=== PATIENT | female | born 1965 | race Caucasian/White ===

== ENCOUNTER 2017-10-19 10:21 | Observation (INO) | payer OTHER ==
[~2017-10-19 10:21] MED LIST: LIDOCAINE 2% (SDV) 5 ML INJ
[2017-10-19] MEDS ORDERED: CEFAZOLIN 2 GM/50 ML (PMX) 50 ML IVPB (11:00)
[2017-10-19] MEDS: SOD CHLORIDE 0.9% 1,000 ML IV (11:00)
[2017-10-19 11:46] LABS: ADD MAN DIFF? NO
[2017-10-19 12:00] LABS: BASOPHILS % 0.3 % (0.0-2.0); EOSINOPHILS # 0.2 10^3/ul (0.0-0.5); EOSINOPHILS % 2.4 % (0.0-7.0); HEMATOCRIT 38.4 % (37.0-47.0); HEMOGLOBIN 12.7 g/dl (12.0-16.0); LYMPHOCYTES # 2.1 10^3/ul (0.8-2.9); LYMPHOCYTES % 31.1 % (15.0-51.0); MEAN CORPUSCULAR HEMOGLOBIN 27.1 pg (29.0-33.0); MEAN CORPUSCULAR HGB CONC 33.1 g/dl (32.0-37.0); MEAN CORPUSCULAR VOLUME 81.9 fl (82.0-101.0); MEAN PLATELET VOLUME 11.2 fl (7.4-10.4); MONOCYTE # 0.5 10^3/ul (0.3-0.9); MONOCYTES % 6.9 % (0.0-11.0); NEUTROPHIL # 3.9 10^3/ul (1.6-7.5); PLATELET COUNT 289 10^3/UL (140-415); RED BLOOD COUNT 4.69 10^6/ul (4.20-5.40); RED CELL DISTRIBUTION WIDTH 13.2 % (11.5-14.5)
[2017-10-19 12:00] LABS: WHITE BLOOD COUNT 6.7 10^3/ul (4.8-10.8)
[2017-10-19 12:19] LABS: INR 0.97; PARTIAL THROMBOPLASTIN TIME 33.9 Sec (25.0-35.0)
[2017-10-19 12:21] LABS: ALANINE AMINOTRANSFERASE 33 IU/L (13-69); ALBUMIN 4.1 g/dl (3.3-4.9); ALBUMIN/GLOBULIN RATIO 1.02; ALKALINE PHOSPHATASE 117 IU/L (42-121); ANION GAP 19 (8-16); ASPARTATE AMINO TRANSFERASE 23 IU/L (15-46); BILIRUBIN,INDIRECT 0.4 mg/dl (0-1.1); BILIRUBIN,TOTAL 0.4 mg/dl (0.2-1.3); CARBON DIOXIDE 24 mmol/L (21-31); CHLORIDE 109 mmol/L (97-110); GLUCOSE 104 mg/dl (70-220); TOTAL PROTEIN 8.1 g/dl (6.1-8.1)
[2017-10-19 12:31] LABS: BLOOD UREA NITROGEN 13 mg/dl (7-20); CALCIUM 9.4 mg/dl (8.4-10.2); POTASSIUM 3.9 mmol/L (3.5-5.1); SODIUM 148 mmol/L (135-144)
[2017-10-19] MEDS ORDERED: morphine 10 MG INJ (15:25)
[2017-10-19] MEDS ORDERED: PROPOFOL 20 ML (15:27)
[2017-10-19] MEDS ORDERED: CEFAZOLIN 1 GM INJ ×2 (15:27→16:22)
[2017-10-19] MEDS ORDERED: DEXAMETHASONE 4 MG/ML 1 ML INJ (15:27)
[2017-10-19] MEDS ORDERED: ROCURONIUM 50 MG INJ (15:27)
[2017-10-19] MEDS ORDERED: ONDANSETRON 4 MG INJ (16:22)
[2017-10-19] MEDS ORDERED: SUGAMMADEX SODIUM 200 MG/2 ML VIAL IV (16:22)
[2017-10-19] MEDS ORDERED: ONDANSETRON 4 MG INJ IV (16:30)
[2017-10-19] MEDS ORDERED: morphine 2 MG INJ IV (16:30)
[2017-10-19] MEDS ORDERED: HYDROmorphONE (0.2 MG/ML) 10ML SYG IV ×3 (16:42→17:00)
[2017-10-19] MEDS ORDERED: MEPERIDINE 25 MG INJ (16:47)
[2017-10-19] MEDS: ONDANSETRON 4 MG INJ IV (16:57)
[2017-10-19] MEDS: HYDROmorphONE (0.2 MG/ML) 10ML SYG IV ×4 (16:58→17:26)
[2017-10-19] MEDS ORDERED: ALBUTEROL 0.083% (NEB) 2.5 MG/3 ML AMP HHN (17:00)
[2017-10-19] MEDS ORDERED: KETOROLAC 30 MG INJ IV (17:00)
[2017-10-19] MEDS ORDERED: FENTAnyl 50 MCG/ML VIAL IV ×3 (17:00)
[2017-10-19] MEDS ORDERED: DIPHENHYDRAMINE 50 MG INJ IV (17:00)
[2017-10-19] MEDS ORDERED: hydrALAzine 20 MG INJ IV ×2 (17:00→17:30)
[2017-10-19] MEDS ORDERED: OXYCODONE/ACETAMINOPHEN (5/325) TAB PO ×2 (17:00)
[2017-10-19] MEDS ORDERED: EPHEDrine SULFATE 50 MG/5 ML SYG IV (17:00)
[2017-10-19] MEDS ORDERED: LABETALOL HCL 20MG INJ IV (17:00)
[2017-10-19] MEDS ORDERED: MIDAZOLAM 1 MG/ML 2 ML INJ IV (17:00)
[2017-10-19] MEDS: MEPERIDINE 25 MG INJ IV (17:01)
[2017-10-19] MEDS: METOCLOPRAMIDE 10 MG INJ IV (17:51)
[2017-10-19] MEDS: D5W-0.45 NACL + KCL 20 MEQ 1,000 ML IV (21:15)
[2017-10-20] MEDS: D5W-0.45 NACL + KCL 20 MEQ 1,000 ML IV ×4 (00:25→16:25)
[2017-10-20 05:41] LABS: ADD MAN DIFF? NO
[2017-10-20 05:51] LABS: WHITE BLOOD COUNT 9.4 10^3/ul (4.8-10.8)
[2017-10-20 05:51] LABS: BASOPHILS % 0.1 % (0.0-2.0); HEMATOCRIT 32.8 % (37.0-47.0); HEMOGLOBIN 10.7 g/dl (12.0-16.0); LYMPHOCYTES % 10.1 % (15.0-51.0); MEAN CORPUSCULAR HEMOGLOBIN 26.8 pg (29.0-33.0); MEAN CORPUSCULAR HGB CONC 32.6 g/dl (32.0-37.0); MEAN CORPUSCULAR VOLUME 82.2 fl (82.0-101.0); MEAN PLATELET VOLUME 10.9 fl (7.4-10.4); MONOCYTE # 0.2 10^3/ul (0.3-0.9); MONOCYTES % 2.4 % (0.0-11.0); NEUTROPHIL # 8.2 10^3/ul (1.6-7.5); NEUTROPHILS % 87.1 % (39.0-77.0); PLATELET COUNT 251 10^3/UL (140-415); RED BLOOD COUNT 3.99 10^6/ul (4.20-5.40); RED CELL DISTRIBUTION WIDTH 12.9 % (11.5-14.5)
[2017-10-20 06:13] LABS: ANION GAP 20 (8-16); BLOOD UREA NITROGEN 16 mg/dl (7-20); CALCIUM 8.8 mg/dl (8.4-10.2); CARBON DIOXIDE 22 mmol/L (21-31); CHLORIDE 108 mmol/L (97-110); CREATININE 0.83 mg/dl (0.44-1.00); GLUCOSE 266 mg/dl (70-220); POTASSIUM 4.5 mmol/L (3.5-5.1); SODIUM 145 mmol/L (135-144)
[2017-10-20] MEDS: ACETAMINOPHEN 1000MG/100ML IV 100 ML IVPB (08:45)
[2017-10-20] MEDS: LOSARTAN 25 MG TAB PO (09:21)
== END 2017-10-20 19:55 | disposition home or self-care (01) ==
LOC: SDS 10:21 → REC 16:27 → MS1 20:20
DX: C50.911 Malignant neoplasm of unspecified site of right female breast (principal); Z17.0 Estrogen receptor positive status [ER+]; I10 Essential (primary) hypertension
CPT/HCPCS: 19307; 71045; 80048; 80053; 84703; 85025; 85610; 85730; 88309; 93005; 99217

== ENCOUNTER 2018-04-21 07:43 | Day surgery (SDC) | payer OTHER ==
[~2018-04-21 07:43] MED LIST changes: -LIDOCAINE 2% (SDV) 5 ML INJ; +PROPOFOL 200 MG INJ
[2018-04-21] MEDS ORDERED: PROPOFOL 80 ML (08:56)
[2018-04-21] MEDS ORDERED: LIDOCAINE 2% (SDV) 5 ML INJ (08:56)
== END 2018-04-21 11:24 | disposition home or self-care (01) ==
LOC: GIL 07:43
DX: R19.5 Other fecal abnormalities (principal); K57.90 Diverticulosis of intestine, part unspecified, without perforation or abscess without bleeding; K64.8 Other hemorrhoids; K64.4 Residual hemorrhoidal skin tags; K25.9 Gastric ulcer, unspecified as acute or chronic, without hemorrhage or perforation; K31.7 Polyp of stomach and duodenum; Q27.33 Arteriovenous malformation of digestive system vessel
CPT/HCPCS: 43239; 88305; 88312